=== PATIENT | male | born 1975 | race Caucasian/White ===

== ENCOUNTER 2018-07-30 13:52 | Emergency (ER) | payer SELFPAY, MEDICAID ==
[2018-07-30] MEDS: LIDOCAINE 1% (MPF) 5 ML VIAL INFIL (17:34)
[2018-07-30] MEDS: DIPHTH/TET/ACEL PERTUSS (ADULT) 0.5 ML VIAL IM* (20:39)
== END 2018-07-30 21:03 | disposition home or self-care (01) ==
LOC: FTE 13:52
DX: S61.412A Laceration without foreign body of left hand, initial encounter (principal); F17.210 Nicotine dependence, cigarettes, uncomplicated; W26.8XXA Contact with other sharp object(s), not elsewhere classified, initial encounter; Y92.89 Other specified places as the place of occurrence of the external cause; Z23 Encounter for immunization
CPT/HCPCS: 12001; 73130-LT; 90471; 90715; 99283-25

== ENCOUNTER → 2018-08-01 | Emergency (ER) | payer SELFPAY | END | disposition home or self-care (01) | LOC: FTE 11:49 | DX: Z48.01 Encounter for change or removal of surgical wound dressing (principal) | CPT/HCPCS: 99281 ==

== ENCOUNTER 2018-08-06 12:21 | Emergency (ER) | payer MEDICAID | END 2018-08-06 14:26 | disposition home or self-care (01) | LOC: FTE 14:26 | DX: Z48.02 Encounter for removal of sutures (principal); F17.210 Nicotine dependence, cigarettes, uncomplicated | CPT/HCPCS: 99281; Z7502 ==